=== PATIENT | female | born 1960 | race Two or more races ===

== ENCOUNTER 2020-10-08 23:16 | Emergency (ER) | payer OTHER ==
[~2020-10-08] VITALS: Ht 160 cm; Wt 52.2 kg
[2020-10-08 23:16] VITALS: BP 174/80
== END 2020-10-09 01:08 | disposition left against medical advice (07) ==
LOC: ER 23:16
DX: M79.641 Pain in right hand (principal); Z53.21 Procedure and treatment not carried out due to patient leaving prior to being seen by health care provider; X58.XXXA Exposure to other specified factors, initial encounter; Y93.89 Activity, other specified; Y92.89 Other specified places as the place of occurrence of the external cause; Y99.8 Other external cause status

== ENCOUNTER → 2020-12-22 | Outpatient (CLI) | payer MEDICAID ==
[2020-12-22 10:12] LABS: Basophils # (auto) 0.1 10 ^3/uL (0-0.2); Basophils % (auto) 1.1 % (0.0-2.0); Eosinophils # (auto) 0.2 10 ^3/uL (0-0.8); Eosinophils % (auto) 4.1 % (0.0-7.0); Hematocrit 41.2 % (36.0-46.0); Hemoglobin 13.7 g/dL (12.2-16.2); Lymphocytes # (auto) 1.9 10 ^3/uL (0.4-5.4); Lymphocytes % (auto) 31.8 % (10.0-50.0); Mean Corpuscular Hemoglobin 29.4 pg (28.0-32.0); Mean Corpuscular Hgb Conc. 33.1 g/dL (32.0-36.0); Mean Corpuscular Volume 88.7 fL (80.0-100.0); Monocytes # (auto) 0.4 10 ^3/uL (0-1.3); Monocytes % (auto) 6.3 % (0.0-12.0); Neutrophils # (auto) 3.3 10 ^3/uL (1.6-8.6); Neutrophils % (auto) 56.7 % (37.0-80.0); Nucleated Red Blood Cells % 0.1 %; Red Blood Cells 4.64 10^6/uL (4.0-5.20); Red Cell Distribution Width 13.8 % (11.8-14.3); White Blood Cell 5.8 10^3/uL (4.4-10.8)
[2020-12-22 10:40] LABS: Albumin 3.4 g/dL (3.4-5.0); Calcium 8.5 mg/dL (8.5-10.1); Potassium 3.8 mmol/L (3.5-5.1)
[2020-12-22 10:45] LABS: BUN/Creatinine Ratio 9.3; Bilirubin, Total 0.4 mg/dL (0.2-1.0); Total Protein 7.2 g/dL (6.4-8.2)
[2020-12-22 10:58] LABS: Free T4 (Free Thyroxine) 1.31 ng/dL (0.89-1.76)
[2020-12-22 10:59] LABS: T3 Total 1.16 ng/mL (0.60-1.81)
== END | disposition home or self-care (01) ==
LOC: LAB 09:59
PROVIDERS: ATTEND Nurse Practitioner Family
DX: I10 Essential (primary) hypertension (principal); R53.83 Other fatigue; I25.2 Old myocardial infarction; M89.8X9 Other specified disorders of bone, unspecified site
CPT/HCPCS: 36415; 80053; 80061; 84439; 84443; 84480; 85025; 86038; 86431

== ENCOUNTER → 2023-08-28 | Outpatient (CLI) | payer MEDICAID | END | disposition home or self-care (01) | LOC: XYW 07:40 | PROVIDERS: ATTEND Nurse Practitioner Family | DX: I51.89 Other ill-defined heart diseases (principal); C50.911 Malignant neoplasm of unspecified site of right female breast | CPT/HCPCS: 93306 ==

== ENCOUNTER 2024-01-02 16:20 | Emergency (ER) | payer MEDICAID ==
[~2024-01-02] VITALS: Ht 160 cm; Wt 50.0 kg
[2024-01-02 17:27] LABS: Mean Corpuscular Volume 102.3 fL (80.0-100.0); Red Cell Distribution Width 17.2 % (11.8-14.3)
[2024-01-02 17:28] LABS: Hematocrit 27.6 % (36.0-46.0); Hemoglobin 9.7 g/dL (12.2-16.2); Mean Corpuscular Hemoglobin 35.8 pg (28.0-32.0); Mean Corpuscular Hgb Conc. 34.9 g/dL (32.0-36.0); Platelet Count (auto) 206 10^3/uL (140-450)
[2024-01-02 17:37] LABS: Chloride 95 mmol/L (98-107); Potassium 2.8 mmol/L (3.5-5.1); Sodium 132 mmol/L (136-145)
[2024-01-02 17:38] LABS: Anion Gap 8 (5-15); Calcium 9.5 mg/dL (8.7-10.4); Carbon Dioxide 29 mmol/L (20-31)
[2024-01-02 17:39] LABS: White Blood Cell 0.9 10^3/uL (4.4-10.8)
[2024-01-02 17:40] LABS: Basophils % (manual) 0 (0.0-2.0); Blast Cells 0; Eosinophils % (manual) 0 (0-7); Metamyelocytes % 0; Myelocytes % 0; Promyelocytes % 0; Reactive Lymphocytes 0
[2024-01-02 17:43] LABS: Blood Urea Nitrogen 19 mg/dL (9-23); Glucose 130 mg/dL (74-106)
[2024-01-02 19:30] LABS: Band Neutrophils % (manual) 1; Lymphocytes % (manual) 75 (10.0-50.0); Monocytes % (manual) 7 (0-12); Platelet Estimate Adequate
[2024-01-02 19:31] LABS: Macrocytosis Slight
[2024-01-02 19:50] VITALS: BP 99/58; PULSE 105; RESP 14; TEMP 98.8; O2SAT 97
== END 2024-01-02 20:47 | disposition home or self-care (01) ==
LOC: ER 16:20 → EDBD 16:20 → ER 20:45
DX: S00.83XA Contusion of other part of head, initial encounter (principal); R55 Syncope and collapse; Z85.9 Personal history of malignant neoplasm, unspecified; W18.39XA Other fall on same level, initial encounter; Y93.89 Activity, other specified; Y92.89 Other specified places as the place of occurrence of the external cause; Y99.8 Other external cause status
CPT/HCPCS: 36415; 70450; 71045; 80048; 84484; 85007; 85027; 93005

== ENCOUNTER 2024-10-04 08:04 | Outpatient (CLI) | payer MEDICAID ==
--- NOTE | 2024-10-07 14:20 | DVHSR ---
APPROVED REPORT EXAM: LIMITED Two-dimensional and M-mode echocardiogram with Doppler and color Doppler. DIMENSIONS LVDd3.9 (3.8-5.7cm)LA (2D)3.1 (1.9-4.0cm)Aortic Root3.3 (2.0-3.7cm) LVDs2.3 (2.5-4.0cm)LA (MM) (1.9-4.0cm)Aortic Cusp Exc1.4 (1.5-2.0cm) EF (%) 65.0 (55-70%)Rt. Atrium3.3 (1.9-4.0cm)Asc. Aorta cm IVSd0.7 (0.7-1.1cm)RV (D) (1.8-2.4cm) PWd1.1 (0.7-1.1cm) Mitral Valve MitralMitral Stenosis E wave0.90m/sMV Mean GR.mmHg A wave1.10m/sMV Peak GR.mmHg E/A ratio0.82D MVAcm2 Aortic Valve Aortic ValveAortic Stenosis V10.80m/Lul Mean GR.3mmHg V21.10m/Lul Peak GR.5mmHg LVOT Diameter2.4 (1.8-2.4cm)Doppler AVA3.29cm2 LEFT VENTRICLE The left ventricle is normal size. The left ventricle is normal in structure and function. The Ejection Fraction is within normal limits. RIGHT VENTRICLE The right ventricle is normal size. ATRIA The left atrial size is normal. The right atrium size is normal. The interatrial septum is intact with no evidence for an atrial septal defect. MITRAL VALVE The mitral valve is normal in structure. There is no mitral valve regurgitation noted. PULMONIC VALVE The pulmonic valve is not well visualized. TRICUSPID VALVE The tricuspid valve is grossly normal. AORTIC VALVE The aortic valve opens well. No aortic regurgitation is present. GREAT VESSELS The aortic root is normal size. PERICARDIAL EFFUSION There is no pericardial effusion. Other Information Quality : Technically LimitedRhythm : Technically limited study due to body habitus, patient with double mastectomy. Conclusion EF 55%
== END 2024-10-04 17:00 | disposition home or self-care (01) ==
LOC: Rad HDHVI 08:04
PROVIDERS: ATTEND Internal Medicine Cardiovascular Disease
DX: I10 Essential (primary) hypertension (principal); E78.5 Hyperlipidemia, unspecified
CPT/HCPCS: 93306